=== PATIENT | male | born 1970 | race Caucasian/White ===

== ENCOUNTER → 2021-06-02 07:59 | Outpatient (CLI) | payer BC, SELFPAY ==
--- NOTE | ~2021-06-02 | MR_ITS ---
EXAMINATION: MR IAC wo/w con DATE: 06/02/2021 09:43 INDICATION: Unspecified sensorineural hearing loss. TECHNIQUE: Magnetic resonance imaging (MRI) of the brain, brainstem, and internal auditory canals was performed without and with 18 mL MultiHance intravenous contrast. Sequences included sagittal and ax ial T1-weighted FSE, axial diffusion-weighted FS EPI, axial T2*-weighted GRE, axial T2-weighted FLAIR Propeller, axial T2-weighted Propeller, small fembh-zz-aemp coronal FIESTA, small akrto-mn-jail lionel nal T1-weighted FSE, and small ygbwj-zs-ipst axial T1-weighted SPGR. Postcontrast sequences included axial T1-weighted FSE, small toyjb-jf-fpag coronal T1-weighted FSE, and small qvlbx-ex-qgub axial T1- weighted SPGR. Apparent diffusion coefficient (ADC) maps were created. COMPARISON: Brain MRI 04/23/2018 FINDINGS: There is no intracranial hemorrhage, acute infarction, or abnormal intracranial mass lesion . The ventricles are normal in size. There is mild mucosal thickening in the paranasal sinuses. The o rbits are normal. The internal auditory canals and inner and middle ears are normal. The mastoid air cells are normal. IMPRESSION: 1. Normal brain. Reviewed, dictated and finalized at location A. IMPRESSION: 1. Normal brain.
[2021-06-02 08:33] LABS: Estimated Glomerular Filt Rate 53
== END ==
PROVIDERS: PCP Nurse Practitioner Family; Visit Provider Nurse Practitioner Family
DX: H90.5 Unspecified sensorineural hearing loss (principal)
CPT/HCPCS: 70553; A9577

== ENCOUNTER 2022-10-23 15:39 | Emergency (ER) | payer BC, SELFPAY ==
[2022-10-23 16:14] VITALS: BP 137/85; PULSE 77; RESP 18; TEMP 36.3; O2SAT 99
--- NOTE | 2022-10-23 16:36 | ED.URI ---
HPI - URI/Sore Throat General Chief Complaint: Upper Respiratory Infection Stated Complaint: sorethroat Time Seen by Provider: 10/23/22 16:28 Source: patient Mode of arrival: ambulatory Limitations: no limitations History of Present Illness HPI Narrative: Patient presents today complaining of a sore throat, nasal congestion, postnasal drip, and subjective fever since this morning. Currently rates his pain 1/10 and has been taking Tylenol with some relief. Son with similar symptoms. Related Data Home Medications Medication Instructions Recorded Confirmed bupropion HCl 200 mg tablet,12 hr 200 mg PO BID 10/23/22 10/23/22 sustained-release gabapentin 300 mg capsule See Rx Instructions .Route .COMPLEX 10/23/22 10/23/22 meloxicam 15 mg tablet 15 mg PO DAILY 10/23/22 10/23/22 timolol maleate 0.5 % eye drops 1 drp EACH EYE BID 10/23/22 10/23/22 Allergies Allergy/AdvReac Type Severity Reaction Status Date / Time pseudoephedrine AdvReac Intermediate Palpitation Verified 10/23/22 16:24 s Review of Systems Review of Systems: CONSTITUTIONAL: Denies body aches, chills, or sweats.+ subjective fever EYES: Denies visual changes, redness, or discharge. ENT: Denies rhinorrhea, or otalgia.+ sore throat, congestion, postnasal drip CARDIOVASCULAR: Denies chest pain, palpitations, or edema. RESPIRATORY: Denies cough or dyspnea. GASTROINTESTINAL: Denies abdominal pain, nausea, vomiting, or diarrhea. GENITOURINARY: Denies dysuria or hematuria. SKIN: Denies rash, itching, or wounds. MUSCULOSKELETAL: Denies back pain, joint pain, or myalgia. NEUROLOGIC: Denies headache, numbness, tingling, or weakness. PSYCH: Denies depression or anxiety. PMFSH Comments At time of signature, I have reviewed and agree with nursing past medical, surgical, social and family history unless otherwise noted. Please see nursing chart for further information. There is no relevant family history pertinent to the presenting complaint Exam Narrative: GENERAL: Well-appearing, well-nourished, and in no acute distress. HEAD: Normocephalic, atraumatic. EYES: EOMI. No redness or drainage. Conjunctivae normal. ENT: Mucous membranes pink and moist. Nares clear. No rhinorrhea. TMs normal bilaterally. Throat mildly erythematous without edema or exudate. Uvula midline. NECK: Normal AROM. Supple. No lymphadenopathy. CHEST: No respiratory distress. Clear to auscultation. HEART: Regular rate and rhythm. No murmur appreciated. Normal peripheral pulses. EXTREMITIES: Normal range of motion. No edema. SKIN: Warm, dry, no rash. Capillary refill normal. Normal skin turgor. NEURO: No focal deficits. Alert and oriented x3. Gait steady. PSYCH: Normal affect. No signs of depression or anxiety. Course Course Level of Care: Express Care Visit Vital Signs Vital signs: Vital Signs Temperature 97.4 F L 10/23/22 16:14 Pulse Rate 77 10/23/22 16:14 Respiratory Rate 18 10/23/22 16:14 Blood Pressure 137/85 10/23/22 16:14 Pulse Oximetry 99 10/23/22 16:14 Oxygen Delivery Room Air 10/23/22 16:14 Temperature 97.4 F L 10/23/22 16:14 Pulse Rate 77 10/23/22 16:14 Respiratory Rate 18 10/23/22 16:14 Blood Pressure 137/85 10/23/22 16:14 Pulse Oximetry 99 10/23/22 16:14 Oxygen Delivery Room Air 10/23/22 16:14 Reviewed. Pt has been instructed to follow up with his PCP regarding his elevated blood pressure today. MDM - URI/Sore Throat MDM Narrative Medical decision making narrative: Rapid strep negative. Symptoms likely due to URI. Anticipatory guidance given. No prescription medications indicated at this time. Differential Diagnosis Differential diagnosis: Likely upper respiratory infection, viral infection, pharyngitis and other (Strep throat) Lab Data Attestation: I reviewed the patient's lab results. Labs: Strep Screen Presumptive Negative *(Reference Range: Negative)*
== END 2022-10-23 16:44 | disposition home or self-care (01) ==
PROVIDERS: Emergency Provider Nurse Practitioner; PCP Nurse Practitioner Family
DX: J06.9 Acute upper respiratory infection, unspecified (principal); H40.9 Unspecified glaucoma; G60.9 Hereditary and idiopathic neuropathy, unspecified; F41.9 Anxiety disorder, unspecified; F32.A Depression, unspecified
CPT/HCPCS: 87081; 87880; 99213; G0463

== ENCOUNTER 2023-12-20 14:30 | Outpatient (CLI) | payer BC, SELFPAY ==
--- NOTE | ~2023-12-20 | MR_ITS ---
EXAMINATION: MR cervical spine wo/w con DATE: 12/20/2023 15:15 INDICATION: Cervical myelopathy. TECHNIQUE: Magnetic resonance imaging (MRI) of the cervical spine was performed without and with 18 m L MultiHance intravenous contrast. COMPARISON: Cervical spine MRI 01/15/2018 FINDINGS: Bone alignment is normal. There are changes of anterior fusion procedure at C5-C6 with heal ed interbody bone graft. There is mild chronic anterior wedging of C7 vertebral body. There is modera tely decreased disc height at C6-C7. The spinal cord signal intensity is normal. The following disc l evels are specifically discussed: C2-C3: The disc does not extend beyond the endplate margin. There is no uncovertebral joint osteoarth ritis. There is moderate right facet joint osteoarthritis. There is ankylosis of left facet joint wit h moderate hypertrophy. There is mild left neural foraminal stenosis. There is no central canal steno sis. C3-C4: The disc does not extend beyond the endplate margin. There is mild right and moderate left unc overtebral joint osteoarthritis. There is moderate bilateral facet joint osteoarthritis. There is mil d left neural foraminal stenosis. There is no central canal stenosis. C4-C5: The disc does not extend beyond the endplate margin. There is mild right and moderate left unc overtebral joint osteoarthritis. There is severe right and moderate left facet joint osteoarthritis. There is mild bilateral neural foraminal stenosis. There is no central canal stenosis. C5-C6: There is mild right and moderate left uncovertebral joint hypertrophy. There is ankylosis of l eft facet joint with mild hypertrophy. There is mild left neural foraminal stenosis. There is no cent ral canal stenosis. C6-C7: The disc is bulging. There is severe bilateral uncovertebral joint osteoarthritis. There is mo derate and severe left facet joint osteoarthritis. There is moderate bilateral neural foraminal steno sis. There is no central canal stenosis. C7-T1: The disc does not extend beyond the endplate margin. There is no uncovertebral joint osteoarth ritis. There is moderate bilateral facet joint osteoarthritis. There is mild bilateral neural foramin al stenosis. There is no central canal stenosis. IMPRESSION: 1. Moderate cervical spondylosis, worsened from 01/15/2018. 2. Anterior fusion procedure at C5-C6. Reviewed, dictated and finalized at location E.
== END 2023-12-20 14:31 ==
LOC: MICIMG 14:31
DX: G95.9 Disease of spinal cord, unspecified (principal); M47.892 Other spondylosis, cervical region; Z98.1 Arthrodesis status
CPT/HCPCS: 72156; A9577

== ENCOUNTER 2024-02-15 15:00 | Outpatient (RCR) | payer BC, SELFPAY ==
--- NOTE | 2023-12-10 15:35 | OTOPEVAL1 ---
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 He reports he has some exercises from [employer] [facility] OT that he has been doing. Since doing the finger ROM there was a small open area on the palmar incision on the hand. He has been bandaging this closed. Recommending he call MD office/upload a picture to My Chart for further recommendation. He reports he has been completing ADLs 1-handed at this time. He has no pain. He is right handed. Reported Pain Level Pain Score 0: Self Report Assessment OT Clinical Summary Patient referred to OT with severe ulnar neuropathy s/p cubital tunnel release, carpal tunnel release, and nerve transfers (median to ulnar). He presents 3 weeks post up with stiffness , edema, and weakness that limit return to functional use. Skilled OT indicated for HEP instruction and progression, modalities for pain and improved flexibility, scar tissue management, functional therapeutic activities and exercises, and manual therapy to facilitate optimal functional left hand use for ADLs. Plan of Care Interventions Therapeutic Exercise,Manual Therapy,Neuro Re- education,Therapeutic Activities,Hot Pack/Cold Pack,Check Out for Orthotic/Pr,Ultrasound,Paraffin OT Services Indicated Yes Treatment Frequency and 1x/week for 7 visits Duration These treatments will address the objective and functional deficits as defined above. The patient will be advanced safely and appropriately in order for the patient to progress towards his/her prior level of function. Additional exercises will be introduced and as well as a comprehensive home exercise program upon discharge, if needed, ?to ensure carryover of functional gains achieved in the clinic. T
--- NOTE | 2023-12-10 15:36 | OPREHPOC ---
Outpatient Therapy Plan of Care This is a Multidisciplinary Plan of Care that may contain components documented by all disciplines (PT, OT, and ST.) OT Problem 1 OT Problem #1 Knowledge Deficit OT Goal 1 Goal 1. Patient to be independent with instructed materials. Target Visit 7 OT Problem 2 OT Problem #2 Impaired Flexibility OT Goal 1 Goal 1. Increase active ROM of the left UE: - elbow flexion to 135 - elbow extension to 0 - wrist flexion to 55 Target Visit 7 OT Problem 3 OT Problem #3 Impaired Strength OT Goal 1 Goal 1. Patient to be able to complete resisted forearm pronation with a 1 lb. mallet/hammer x20 reps without pain or need for rest break. 2. Patient to be able to complete housecleaner/pinch/ intrinsic hand strengthening with yellow theraputty x5 minutes without pain. Target Visit 7
--- NOTE | 2024-01-25 15:53 | OTOPPROG ---
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 States his ROM is 95% normal. States his small finger and ring continue to feel numb, notes it feels better, but continues to feel numbness. Feels some residual weakness in the intrinsic muscles. Reports residual discomfort with pressure to the carpal tunnel scar. ROM of the elbow, forearm, wrist, and hand have returned to normal limits. Strength of the elbow, forearm, and wrist have returned to normal limits. Finger abduction/adduction strength: - index 3+/5 - middle 3+/5 - ring 3/5 - small 3/5 Finger lumbrical strength: - index 4+/5 - middle 4+/5 - ring 3+/5 - small 3+/5 [place] monofilament test for ulnar and median nerves is normal. Assessment OT Clinical Summary Patient referred to OT with severe ulnar neuropathy s/p cubital tunnel release, carpal tunnel release, and nerve transfers (median to ulnar). He has participated in 6 OT sessions and has made excellent progress. ROM and strength of the elbow, forearm, and wrist have returned to normal limits. 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 Sensation is normal. Residual weakness noted in the intrinsic muscles as well as the lumbricals of the hand. Plan to follow up in 3 weeks to check in on HEP and progress as needed. Plan of Care Interventions Therapeutic Exercise,Manual Therapy,Neuro Re- education,Therapeutic Activities,Hot Pack/Cold Pack,Check Out for Orthotic/Pr,Ultrasound,Paraffin OT Services Indicated Yes Treatment Frequency and Follow up in 3 weeks Duration These treatments will address the objective and functional deficits as defined above. The patient will be advanced safely and appropriately in order for the patient to progress towards his/her prior level of function. Additional exercises will be introduced an
--- NOTE | 2024-02-15 15:50 | OTOPPROG ---
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 He reports good compliance with the HEP. States he continues to have difficulties with strength distally in the ulnar 2 digits. He reports they continue to feel numb and weak. States he has soreness when he holds objects and they press on his left palm, like when he's holding a skillet handle, for instance. He is reporting no functional limitations at this time. He has returned to gardening and using yard tools/ equipment. ROM of the elbow, forearm, wrist, and hand have returned to normal limits. Strength of the elbow, forearm, and wrist have returned to normal limits. Finger abduction/adduction strength: - index 3+/5 - middle 3+/5 - ring 3/5 - small 3/5 Finger lumbrical strength: - index 4+/5 - middle 4+/5 - ring 3+/5 - small 3+/5 [place] Melba monofilament test for ulnar and median nerves is normal. Assessment OT Clinical Summary Patient referred to OT with severe ulnar neuropathy s/p cubital tunnel release, carpal tunnel release, and nerve transfers (median to ulnar). He has participated in 7 OT sessions and has made excellent progress. ROM and strength of the elbow, forearm, and wrist have returned to normal limits. 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 from 3 weeks ago). Sensation is normal. Residual weakness noted in the intrinsic muscles as well as the lumbricals of the hand. Reviewed HEP and upgraded his putty. Plan to follow up in 5 weeks to check in on HEP and progress as needed. Plan of Care Interventions Therapeutic Exercise,Manual Therapy,Neuro Re- education,Therapeutic Activities,Hot Pack/Cold Pack,Check Out for Orthotic/Pr,Ultrasound,Paraffin OT Services Indicated Yes
--- NOTE | 2024-02-26 11:43 | PCOTNOTE ---
This treatment is being continued on visit number [id number]. Please see documentation on both accounts to view progress. Completed interventions, outcomes, and problems have been marked as Inactive to facilitate the copying of the Care plan routine for recurring accounts.
== END 2024-02-26 10:45 | disposition home or self-care (01) ==
LOC: ANHOT 15:00
DX: G56.22 Lesion of ulnar nerve, left upper limb (principal)
CPT/HCPCS: 97018; 97110; 97140; 97166

== ENCOUNTER 2024-04-04 15:51 | Outpatient (RCR) | payer BC, SELFPAY ==
--- NOTE | 2024-02-26 11:44 | PCOTNOTE ---
The treatment documented on this account is a continuation of the treatment documented on visit number [id number]. Please see documentation on both accounts to view progress. The Plan of Care has been transitioned and updated within the new V#. I have addressed and agree with the discipline specific Problems, Interventions, and Goals for the current certification period. Completed interventions, outcomes, and problems have been marked as Inactive to facilitate the copying of the Care plan routine for recurring accounts.
--- NOTE | 2024-04-04 14:46 | OTOPDC ---
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 He reports good compliance with the putty HEP, stating he hasn't been doing as much of the arm HEP. He is reporting no functional limitations. He subjectively feels some residual weakness in the left hand and has reduced dexterity. ROM of the elbow, forearm, wrist, and hand have returned to normal limits. Strength of the elbow, forearm, and wrist have returned to normal limits. Finger abduction/adduction strength: - index 4-/5 - middle 4-/5 - ring 3+/5 - small 3+/5 Finger lumbrical strength: - index 4+/5 - middle 4+/5 - ring 3+/5 - small 3+/5 [place] Melba monofilament test for ulnar and median nerves is normal. 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 (R) calibration laboratory technician 109 lbs. Reported Pain Level Pain Score 0: Self Report Assessment OT Clinical Summary Patient referred to OT with severe ulnar neuropathy s/p cubital tunnel release, carpal tunnel release, and nerve transfers (median to ulnar). He has made excellent progress so far. He presents with normal ROM. Normal strength of the elbow, forearm, and wrist. 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 (right measures 109 lbs). Sensation is normal. Lumbrical and interossei strength improved, but continue to demonstrate deficit compared to the uninvolved hand, and we reviewed HEP for these today. No further skilled OT indicated at this time. Thank you for this referral. Plan of Care OT Services Indicated No
== END 2024-04-04 15:52 | disposition home or self-care (01) ==
LOC: ANHOT 15:51
DX: G56.22 Lesion of ulnar nerve, left upper limb (principal)
CPT/HCPCS: 97110